=== PATIENT | male | born 1970 | race Caucasian/White ===

== ENCOUNTER 2021-06-01 11:54 | Emergency (ER) | payer SELFPAY ==
[2021-06-01] MEDS ORDERED: Lidocaine 1% 10 ML MDV INJECT ONE (12:09)
[2021-06-01] MEDS ORDERED: Diphtheria,Pertussis(Acell),Tetanus Vaccine 0.5 ML Syringe IM ONE (12:09)
--- NOTE | 2021-06-01 12:11 | EDM.PDOC ---
ED HPI GENERAL MEDICAL PROBLEM - General Chief Complaint: Laceration Stated Complaint: L INDEX FINGER/HAND INJURY Time Seen by Provider: 06/01/21 12:00 Source of Information: Reports: Patient History Limitations: Reports: No Limitations - History of Present Illness INITIAL COMMENTS - FREE TEXT/NARRATIVE: 50-year-old male presents the emergency department today with complaints of injury to his left index finger. Patient states that just prior to arrival he was cutting some trees with a chainsaw in his right yard when he managed to cut the dorsal aspect of his proximal left index finger. Left Hand Pain Score (Numeric/FACES): 10 - Related Data Allergies Allergy/AdvReac Type Severity Reaction Status Date / Time Penicillins Allergy Nausea Verified 06/01/21 12:02 Home Meds: Home Meds cephALEXin [Keflex] 500 mg PO QID #40 cap 06/01/21 [Rx] Past Medical History Respiratory History: Reports: Asthma Musculoskeletal History: Reports: Other (See Below) Other Musculoskeletal History: left lower leg plates and screws Social & Family History - Tobacco Use Tobacco Use Status *Q: Never Tobacco User Second Hand Smoke Exposure: No - Caffeine Use Caffeine Use: Reports: Energy Drinks, Soda - Recreational Drug Use Recreational Drug Use: No ED ROS GENERAL - Review of Systems Review Of Systems: Comprehensive ROS is negative, except as noted in HPI. ED EXAM, SKIN/RASH Exam: See Below Exam Limited By: No Limitations General Appearance: Alert, WD/WN, Moderate Distress Ears: Normal External Exam, Hearing Grossly Normal Nose: Normal Inspection Throat/Mouth: Normal Inspection, Normal Lips, Normal Voice, No Airway Compromise Head: Atraumatic Neck: Normal Inspection Respiratory/Chest: No Respiratory Distress, No Accessory Muscle Use Cardiovascular: Normal Peripheral Pulses, Regular Rate, Rhythm GI/Abdominal: No Distention (Male) Exam: Deferred Rectal (Males) Exam: Deferred Back Exam: Normal Inspection Extremities: Normal Range of Motion, Normal Capillary Refill. No: Normal Inspection (1 cm gaping laceration noted to the dorsal aspect of the proximal left index finger) Neurological: Alert, Oriented, Normal Cognition Psychiatric: Anxious Skin: Warm, Dry, Normal Color, No Rash, Wound/Incision (Gaping laceration noted to the dorsal aspect of the proximal left index finger). No: Intact Location, Skin: Upper Extremity, Left Lymphatic: No Adenopathy ED SKIN PROCEDURES - Laceration/Wound Repair Left Proximal Dorsal Digit - 2nd (Index) Appearance: Superficial Distal NVT: Neuro & Vascular Intact, Other (Laceration noted to dorsal tendon) Anesthetic Type: Local Local Anesthesia - Lidocaine (Xylocaine): 1% Plain Local Anesthetic Volume: 3cc Exploration/Debridement/Repair: Wound Explored, Multiple Flaps Aligned Closed with: Sutures Lac/Wound length In cm: 3.5 Suture Size: 5-0 # of Sutures: 10 Suture Type: Nylon, Interrupted Course - Vital Signs Text/Narrative:: As stated above, patient presents with an injury to his left index finger. Patient was using a chain saw to cut some trees in his yard prior to arrival wh en he managed to cut the dorsal aspect of his proximal left index finger. Upon exam, there is a gaping laceration noted to the dorsal aspect of the proximal left index finger. CMS is intact. Patient does have good strength and range of motion of left index finger. Will obtain an x-ray. Patient is unaware of his tetanus vaccination so we will order this as well. Last Recorded V/S: Last Vital Signs Temp 98.0 F 06/01/21 12:00 Pulse 84 06/01/21 12:00 Resp 20 06/01/21 12:00 BP 99/76 06/01/21 12:00 Pulse Ox 99 06/01/21 12:00 - Orders/Labs/Meds Orders: Active Orders 24 hr Category Date Time Status Vaccine to be Administered/Admin Charge [RC] ASDIRECTED Care 06/01/21 12:10 Active Meds: Medications Discontinued Medications Generic Name Dose Route Start Last Admin Trade Name Freq PRN Reason Stop Dose Admin Diphtheria/Tetanus/Acell Pertussis 0.5 ml 06/01/21 12:09 06/01/21 12:14 Diphtheria,Pertussis(Acell),Tetanus Vaccine 0.5 Ml Syringe IM 06/01/21 12:10 0.5 ml .ONCE ONE Administration Lidocaine HCl 10 ml 06/01/21 12:09 06/01/21 12:14 Lidocaine 1% 10 Ml Mdv INJECT 06/01/21 12:10 10 ml ONETIME ONE Administration - Re-Assessments/Exams Free Text/Narrative Re-Assessment/Exam: 06/01/21 13:23 Radiologist impression 4 view of the left second finger: 1. Soft tissue swelling. 2. No acute bony abnormality is appreciated on the left second finger exam. Wound was prepped and draped in sterile fashion. Upon exploration of the wound it is noted that his dorsal tendon is lacerated.. Patient is notified that he will need to see hand surgery regarding this. He states he will not be doing that and he would just like his wound sutured up. I once again reiterated that he likely will have decreased range of motion due to the laceration of his tendon and he states once again that he has no intentions of following up with hand surgery. He states he needs to get back to work immediately after his wound is sutured. 06/01/21 13:26 Patient will be started on Keflex. I will send a prescription to his pharmacy. 06/01/21 13:31 I have ordered for nursing staff to apply a finger splint on this patient to prevent any further injury. Departure - Departure Time of Disposition: 13:26 Disposition: Home, Self-Care 01 Condition: Good Clinical Impression: Laceration involving tendon - Discharge Information Prescriptions: cephALEXin [Keflex] 500 mg PO QID #40 cap Instructions: Sutures, Trudi, or Adhesive Wound Closure, [id number], Laceration Care, Adult, [id number] Referrals: PCP,None [Primary Care Provider] - Forms: ED Department Discharge Additional Instructions: You were seen in the emergency department today with a laceration to your left index finger. X-ray was completed and did not show any fracture associated with the laceration. However there is a laceration of the dorsal tendon on your index finger. It is strongly recommended that you follow-up with [facility] at [phone] to meet with a hand surgeon for repair of this. You will need to be started on an oral antibiotic called Keflex. You will need to take 1 tab 4 times daily for the next 10 days as you did have tendon injury associated with this laceration. Sutures will need to removed in 10 days time. Keep the dressing on for 24 hours. Once you remove the dressing your wound should be washed twice daily with mild soap such as Dial or Christopher's baby shampoo. Apply a thin film of bacitracin and then a dressing to keep it covered. Keep the splint on at all times to prevent further injury. Watch for any signs and symptoms of infection such as increased warmth, redness, swelling or pus. Sepsis Event Note (ED) - Focused Exam Vital Signs: Vital Signs Temp Pulse Resp BP Pulse Ox 06/01/21 12:00 98.0 F 84 20 99/76 99 - My Orders Last 24 Hours: My Active Orders 06/01/21 12:10 Vaccine to be Administered/Admin Charge [RC] ASDIRECTED - Assessment/Plan Last 24 Hours: My Active Orders 06/01/21 12:10 Vaccine to be Administered/Admin Charge [RC] ASDIRECTED
--- NOTE | 2021-06-01 12:48 | CR ---
Left second finger: 4 views centered to the left second finger were obtained. Comparison: No prior finger or hand study is available Soft tissue swelling is seen. Joint spaces are maintained. No fracture, dislocation or other bony abnormality is appreciated. Impression: 1. Soft tissue swelling. 2. No acute bony abnormality is appreciated on left second finger exam. Diagnostic code #2
== END 2021-06-01 13:56 | disposition home or self-care (01) ==
LOC: JD.ED 11:54
DX: S56.422A Laceration of extensor muscle, fascia and tendon of left index finger at forearm level, initial encounter (principal); J45.909 Unspecified asthma, uncomplicated; Z23 Encounter for immunization; Z88.0 Allergy status to penicillin; W29.3XXA Contact with powered garden and outdoor hand tools and machinery, initial encounter; Y92.096 Garden or yard of other non-institutional residence as the place of occurrence of the external cause
CPT/HCPCS: 12002; 73140-26-F1; 73140-F1; 90471; 90715; 99283-25